=== PATIENT | male | born 1960 | race Caucasian/White ===

== ENCOUNTER 2020-06-08 09:40 | Outpatient (CLI) | payer BC, SELFPAY ==
[2020-06-08 10:39] LABS: Add Urine Microscopic? YES; Appearance Urine Clear (Clear); Bilirubin Urine Negative (Negative); Blood Urine Negative (Negative); Color Urine Amber (Yellow); Glucose Urine UA Negative (Negative); Ketones Urine Negative (Negative); Leukocyte Esterase Ur Negative LEU/UL (NEGATIVE); Mucus Urine Rare /lpf; Nitrate Urine Negative (Negative); Protein Urine 2+ mg/dL (Negative); RBC Urine 0-2 /hpf (0-2); Specific Grav Ur 1.024 (1.001-1.035); Urobilinogen Urine Negative mg/dL (<2.0); WBC Urine 0-3 /hpf (0-3)
[2020-06-08 10:50] LABS: Anion Gap 14.4 mmol/L (7-16); Blood Urea Nitrogen 22 mg/dL (9-20); Calcium 9.8 mg/dL (8.4-10.2); Carbon Dioxide 25 mmol/L (22-30); Chloride 101 mmol/L (98-107); Cholesterol 138 mg/dL (0-200); Estimated Glomerular Filt Rate > 60; Glucose 127 mg/dL (75-110); HDL Direct 24 mg/dL; Potassium 4.4 mmol/L (3.4-5.0); Sodium 136 mmol/L (137-145); Triglycerides 430 mg/dL (<150)
[2020-06-08 10:58] LABS: LDL Cholesterol Direct 56 mg/dL
[2020-06-08 11:32] LABS: Creatinine Urine 149.4 mg/dL
[2020-06-08 11:50] LABS: Hemoglobin A1C 7.3 % (<5.7)
[2020-06-08 12:31] LABS: MALB Creatinine Ratio 453.9 mg/g (0-30); Microalbumin Urine Random 678.2 mg/L (0-16.7)
== END 2020-06-08 09:41 | disposition home or self-care (01) ==
PROVIDERS: PCP Family Medicine Adolescent Medicine; Referring Provider Family Medicine Adolescent Medicine; Visit Provider Internal Medicine Nephrology
DX: E11.8 Type 2 diabetes mellitus with unspecified complications (principal); I10 Essential (primary) hypertension; R80.9 Proteinuria, unspecified
CPT/HCPCS: 36415; 80048; 80061; 81001; 82043; 83036; 87086

== ENCOUNTER 2020-06-17 00:30 | Outpatient (CLI) | payer BC, SELFPAY ==
[2020-06-17 18:53] LABS: SARS-CoV-2 RNA PCR Negative
== END 2020-06-17 00:31 | disposition home or self-care (01) ==
LOC: ANHCOVIDDT 00:30
PROVIDERS: PCP Family Medicine Adolescent Medicine; Visit Provider Internal Medicine Gastroenterology
DX: Z01.812 Encounter for preprocedural laboratory examination (principal); Z11.59 Encounter for screening for other viral diseases
CPT/HCPCS: 87635; C9803; U0003

== ENCOUNTER 2020-06-19 00:13 | Day surgery (SDC) | payer BC, SELFPAY ==
[2020-06-11 15:59] VITALS: BMI 34.7
[2020-06-19 07:18] LABS: Glucose Point of Care 131 (65-105)
[2020-06-19 07:20] VITALS: BP 139/87; PULSE 69; RESP 20; TEMP 36.3; O2SAT 98
[2020-06-19] MEDS: LACTATED RINGERS 1,000 ML 150 ML IV CONT (07:30)
--- NOTE | 2020-06-19 08:03 | WPDGICN ---
Assessment and Plan Assessment and plan (1) History of colon polyps: Code(s): Z86.010 - Personal history of colonic polyps Status: Acute Assessment and Plan: Patient has had recurrent adenomatous colon polyps on at least 2 previous colonoscopy. Plan is for surveillance colonoscopy at least every 3-5 years. Continue to high-fiber diet is advised further recommendations will be given after colonoscopy. (2) Rectal bleeding: Code(s): K62.5 - Hemorrhage of anus and rectum Status: Acute Assessment and Plan: Patient has had rather significant episodes of lower GI bleeding. Plan is to evaluate this at the time of colonoscopy if hemorrhoids are evident than hemorrhoid banding will be arranged in the office. In the interim patient is advised to remain on high-fiber diet and stool softeners as necessary. GI Consult Note Consult date/time: 06/19/20 08:03 HPI: Ronni Moreno is a 59 year old male seen in evaluation at the request of Dr Skinny Adamson. Patient presents for colonoscopy. Patient has had a prior history of adenomatous colon polyps most recent colonoscopy 2017 multiple colon polyps were identified. Patient states since that time he has had intermittent large amount of bright red blood per rectum he denies any pain associated with this. Bleeding is often after a harder bowel movement. Patient's family history is noncontributory patient denies abdominal pain. Denies any weight loss. Review of Systems Review of Systems: All systems reviewed & are unremarkable except as noted in HPI and below PMFSH Social History Social History Alcohol intake: current Meds Home Medications and Allergies Home Medications Medication Instructions Recorded Confirmed Type amlodipine 10 mg PO QAM 06/11/20 06/19/20 History aspirin 325 mg PO DAILY 06/11/20 06/19/20 History atenolol 50 mg PO QAM 06/11/20 06/19/20 History atorvastatin 40 mg PO DAILY 06/11/20 06/19/20 History baclofen 10 mg PO DAILY 06/11/20 06/19/20 History fenofibrate 160 mg PO DAILY 06/11/20 06/19/20 History glimepiride 2 mg PO DAILY 06/11/20 06/19/20 History hydrochlorothiazide 25 mg PO QAM 06/11/20 06/19/20 History icosapent ethyl [Vascepa] 1 g PO QAM 06/11/20 06/19/20 History levothyroxine 50 mcg PO QAM 06/11/20 06/19/20 History lysine [L-Lysine] 500 mg PO DAILY 06/11/20 06/19/20 History metformin 1,000 mg PO BID 06/11/20 06/19/20 History pramipexole 0.25 mg PO HS 06/11/20 06/19/20 History vitamin B complex [Super B-50 1 cap PO DAILY 06/11/20 06/19/20 History Complex] Allergies Allergy/AdvReac Type Severity Reaction Status Date / Time No Known Allergies Allergy Verified 06/19/20 07:19 Vital Signs Vital Signs - 24 hr 06/19/20 07:20 Temperature 97.3 F L Pulse Rate 69 Respiratory Rate 20 Blood Pressure 139/87 Pulse Oximetry 98 Exam Narrative: Exam Narrative: Physical exam reveals patient be alert. Vital signs stable. HEENT exam unremarkable. Lungs are clear to auscultation and percussion. Heart is without murmur or extra sounds. Abdominal exam abdomen is somewhat obese. Bowel sounds are present soft nontender with no organomegaly. Digital external rectal exam reveals no obvious external lesions.
--- NOTE | 2020-06-19 08:14 | P.PNAN_ITS ---
Anes - Initial Pre Proc Eval Procedure: Operation Date: 06/19/20 08:30 Proposed Procedures p Screening Colonoscopy - Tim Cooney MD Date/Time: 06/19/20 08:14 Surgeon: Tim Cooney MD Pre Op Diagnosis: neoplasm screening, hx of colon polyp Patient Data Age: 59 Gender: M Height: 5 ft 11 in Weight: 115.2 kg Last Vital Signs Temp 97.3 F L 06/19/20 07:20 Pulse 69 06/19/20 07:20 Resp 20 06/19/20 07:20 BP 139/87 06/19/20 07:20 Pulse Ox 98 06/19/20 07:20 Allergies Allergy/AdvReac Type Severity Reaction Status Date / Time No Known Allergies Allergy Verified 06/19/20 07:19 Home Medications Medication Instructions Recorded Confirmed Type amlodipine 10 mg PO QAM 06/11/20 06/19/20 History aspirin 325 mg PO DAILY 06/11/20 06/19/20 History atenolol 50 mg PO QAM 06/11/20 06/19/20 History atorvastatin 40 mg PO DAILY 06/11/20 06/19/20 History baclofen 10 mg PO DAILY 06/11/20 06/19/20 History fenofibrate 160 mg PO DAILY 06/11/20 06/19/20 History glimepiride 2 mg PO DAILY 06/11/20 06/19/20 History hydrochlorothiazide 25 mg PO QAM 06/11/20 06/19/20 History icosapent ethyl [Vascepa] 1 g PO QAM 06/11/20 06/19/20 History levothyroxine 50 mcg PO QAM 06/11/20 06/19/20 History lysine [L-Lysine] 500 mg PO DAILY 06/11/20 06/19/20 History metformin 1,000 mg PO BID 06/11/20 06/19/20 History pramipexole 0.25 mg PO HS 06/11/20 06/19/20 History vitamin B complex [Super B-50 1 cap PO DAILY 06/11/20 06/19/20 History Complex] Laboratory Tests 06/19/20 07:16 POC Capillary Glucose 131 mg/dl H mg/dl (65-105) Patient hx anesthesia problems: none Family hx anesthesia problems: none COUNT INCLUDES [facility] Past Medical History Medical History (Updated 06/19/20 @ 08:13 by Reymundo Reyes MD) Diabetes Hyperlipidemia Hypertension ELSA (obstructive sleep apnea) Restless leg syndrome Social History Social History Alcohol intake: current Anes - Eval Final PreProcedure Day of Procedure 06/19/20 08:14 Patient weight: obese Heart: regular rate and rhythm Lungs: clear to auscultation Airway: Mallampati scale class II Neurological: alert and oriented Last oral intake: >/= 8 hours ASA classification: III Emergent: no Anesthetic plan: proceed Anesthesia type and monitoring: general GIVS and standard monitoring Informed Consent: The patient's anesthetic plan and its attendant risks and benefits were discussed with the patient/family/POA. Questions were solicited and answers provided to the satisfaction of the patient/family/POA.
[2020-06-19 08:55] VITALS: BP 126/68; PULSE 69; RESP 20; O2SAT 100
[2020-06-19 09:05] VITALS: BP 123/73; PULSE 66; RESP 22; O2SAT 99
== END 2020-06-19 09:28 | disposition home or self-care (01) ==
PROVIDERS: PCP Family Medicine Adolescent Medicine; Visit Provider Internal Medicine Gastroenterology
PROC: 0DJD8ZZ Inspection of Lower Intestinal Tract, Via Natural or Artificial Opening Endoscopic (ICD-10-PCS; CPT 45378; principal; 2020-06-19 08:30)
DX: K62.5 Hemorrhage of anus and rectum (principal); D12.5 Benign neoplasm of sigmoid colon; K63.5 Polyp of colon; K57.30 Diverticulosis of large intestine without perforation or abscess without bleeding; K64.8 Other hemorrhoids; I10 Essential (primary) hypertension; E78.5 Hyperlipidemia, unspecified; E11.9 Type 2 diabetes mellitus without complications; G47.33 Obstructive sleep apnea (adult) (pediatric); G25.81 Restless legs syndrome; Z79.84 Long term (current) use of oral hypoglycemic drugs; Z79.82 Long term (current) use of aspirin; E66.9 Obesity, unspecified; Z68.35 Body mass index [BMI] 35.0-35.9, adult
CPT/HCPCS: 45385; 88305; J2704; J7120

== ENCOUNTER 2023-04-04 01:12 | Day surgery (SDC) | payer BC, SELFPAY ==
[2023-03-20 14:34] VITALS: BMI 32.3
[2023-04-04 07:29] VITALS: BP 125/74; PULSE 59; RESP 20; TEMP 36.4; O2SAT 99; BMI 30.2
[2023-04-04 07:34] LABS: Glucose Point of Care 155 mg/dl (65-105)
[2023-04-04] MEDS: LACTATED RINGERS 1,000 ML 150 ML IV CONT (07:51)
--- NOTE | 2023-04-04 07:57 | WPDANESEPPF ---
Anes - Initial Pre Proc Eval Procedure: Operation Date: 04/04/23 08:30 Proposed Procedures p Colonoscopy - Tim Cooney MD Date/Time: 04/04/23 07:57 Surgeon: Tim Cooney MD Pre Op Diagnosis: hx colon polyps Patient Data Age: 62 Gender: M Height: 1.8 m Weight: 98.1 kg Last Vital Signs Temp 97.5 F L 04/04/23 07:29 Pulse 59 L 04/04/23 07:29 Resp 20 04/04/23 07:29 BP 125/74 04/04/23 07:29 Pulse Ox 99 04/04/23 07:29 O2 Del Method Room Air 04/04/23 07:29 Allergies Allergy/AdvReac Type Severity Reaction Status Date / Time No Known Allergies Allergy Verified 03/20/23 14:27 Home Medications Medication Instructions Recorded Confirmed Type aspirin 325 mg tablet 325 mg PO DAILY 06/11/20 03/20/23 History hydrochlorothiazide 25 mg tablet 25 mg PO QAM 06/11/20 03/20/23 History lysine 500 mg tablet (L-Lysine) 500 mg PO DAILY 06/11/20 03/20/23 History vitamin B complex (Super B-50 1 cap PO DAILY 06/11/20 03/20/23 History Complex capsule) amlodipine 10 mg tablet 10 mg PO QAM 01/20/22 03/20/23 History baclofen 10 mg tablet 10 mg PO QHS #90 tabs 02/04/22 03/20/23 Rx cholecalciferol (vitamin D3) 25 25 mcg PO DAILY 02/16/22 03/20/23 History mcg (1,000 unit) capsule diphenhydramine HCl 50 mg capsule 50 mg PO QHS 02/16/22 03/20/23 History (NightTime Sleep Aid (diphenhydramine)) docusate sodium 250 mg capsule 250 mg PO QHS 02/16/22 03/20/23 History (Stool Softener) magnesium 250 mg tablet 250 mg PO DAILY 02/16/22 03/20/23 History atenolol 50 mg tablet See Rx Instructions .Route 10/10/22 03/20/23 Rx .COMPLEX #90 tabs icosapent ethyl 1 gram capsule 2 g PO BID #360 caps 12/11/22 03/20/23 Rx (Vascepa) atorvastatin 40 mg tablet See Rx Instructions .Route 02/07/23 03/20/23 Rx .COMPLEX #90 tabs clonazepam 1 mg tablet 1 mg PO QHS #90 tabs 02/13/23 03/20/23 Rx tamsulosin 0.4 mg capsule 0.4 mg PO DAILY #90 caps 02/13/23 03/20/23 Rx dulaglutide 3 mg/0.5 mL 3 mg (0.5 mL) subcut WEEKLY #6 mL 02/14/23 03/20/23 Rx subcutaneous pen injector (Trulicity) levothyroxine 50 mcg tablet 50 mcg PO QAM #90 tabs 03/10/23 03/20/23 Rx metformin 500 mg tablet,extended 1,000 mg PO BID #360 tabs 03/13/23 03/20/23 Rx release 24 hr fenofibrate 160 mg tablet 60 mg PO DAILY 03/20/23 03/20/23 History umeclidinium 62.5 mcg-vilanterol 1 inh inhalation DAILY #60 ea 03/23/23 04/04/23 Rx 25 mcg/actuation powdr for inhalation (Anoro Ellipta) Laboratory Tests 04/04/23 07:31 POC Capillary Glucose 155 H mg/dl (65-105) Patient hx anesthesia problems: none Family hx anesthesia problems: none Results Review: All pre-operative results and documents have been reviewed as part of the pre-operative evaluation. [facility] Past Medical History Medical History Abnormal colonoscopy 07/02 sigmoid polyps Repeat 07/05 Diabetes History of colon polyps Hyperlipidemia Hypertension ELSA (obstructive sleep apnea) Restless leg syndrome Surgical History Surgical History History of shoulder surgery 2002 Right rotator cuff repair Family History Family History Father COPD (chronic obstructive pulmonary disease) Social History Social History (Updated 02/16/22 @ 10:10 by Shakila Shaikh MA) Smoking packs per day: 1 Smoking cigarettes per day: 20.0 Years smoked: 45 Smoking pack-years: 45.00 Smoking status: Current every day smoker Second hand tobacco smoke exposure: Yes Alcohol intake: current Alcohol use details: on occasion Substance use: current Substance use type: marijuana Living arrangements: with family Occupation/Education: retired Gender identity (if verbalized by the patient): Male Sexual Orientation (if Verbalized by the Patient): Straight or Heterosexual Spiritual care
--- NOTE | 2023-04-04 08:18 | PM.HPGS ---
History of Present Illness History of Present Illness Consent: Risks, benefits, and alternatives have been discussed and questions answered. Patient agrees to proceed with procedure. Chief complaint: hx colon polyps Narrative: Ronni Moreno is a 62 year old male Presents for screening colonoscopy. Patient's current weight appetite and bowel movements are normal. Patient denies abdominal pain. He has had no bleeding. Patient has a history of multiple colon polyps in the past. Most recent colonoscopy 3 years ago. Patient's family history noncontributory. Patient reports his current weight appetite bowel movements are normal. Review of Systems Review of Systems: Review of systems noncontributory. [facility] Past Medical History Medical History (Updated 04/04/23 @ 08:22 by Tim Cooney MD) Abnormal colonoscopy 07/02 sigmoid polyps Repeat 07/05 Diabetes History of colon polyps Hyperlipidemia Hypertension ELSA (obstructive sleep apnea) Restless leg syndrome Surgical History Surgical History History of shoulder surgery 2003 Right rotator cuff repair Family History Family History Father COPD (chronic obstructive pulmonary disease) Social History Social History (Updated 02/16/22 @ 10:10 by Shakila Shaikh MA) Smoking packs per day: 1 Smoking cigarettes per day: 20.0 Years smoked: 45 Smoking pack-years: 45.00 Smoking status: Current every day smoker Second hand tobacco smoke exposure: Yes Alcohol intake: current Alcohol use details: on occasion Substance use: current Substance use type: marijuana Living arrangements: with family Occupation/Education: retired Gender identity (if verbalized by the patient): Male Sexual Orientation (if Verbalized by the Patient): Straight or Heterosexual Spiritual care concerns: No Agree to blood products: Yes Meds Home Medications and Allergies Home Medications Medication Instructions Recorded Confirmed Type aspirin 325 mg tablet 325 mg PO DAILY 06/11/20 03/20/23 History hydrochlorothiazide 25 mg tablet 25 mg PO QAM 06/11/20 03/20/23 History lysine 500 mg tablet (L-Lysine) 500 mg PO DAILY 06/11/20 03/20/23 History vitamin B complex (Super B-50 1 cap PO DAILY 06/11/20 03/20/23 History Complex capsule) amlodipine 10 mg tablet 10 mg PO QAM 01/20/22 03/20/23 History baclofen 10 mg tablet 10 mg PO QHS #90 tabs 02/04/22 03/20/23 Rx cholecalciferol (vitamin D3) 25 25 mcg PO DAILY 02/16/22 03/20/23 History mcg (1,000 unit) capsule diphenhydramine HCl 50 mg capsule 50 mg PO QHS 02/16/22 03/20/23 History (NightTime Sleep Aid (diphenhydramine)) docusate sodium 250 mg capsule 250 mg PO QHS 02/16/22 03/20/23 History (Stool Softener) magnesium 250 mg tablet 250 mg PO DAILY 02/16/22 03/20/23 History atenolol 50 mg tablet See Rx Instructions .Route 10/10/22 03/20/23 Rx .COMPLEX #90 tabs icosapent ethyl 1 gram capsule 2 g PO BID #360 caps 12/11/22 03/20/23 Rx (Vascepa) atorvastatin 40 mg tablet See Rx Instructions .Route 02/07/23 03/20/23 Rx .COMPLEX #90 tabs clonazepam 1 mg tablet 1 mg PO QHS #90 tabs 02/13/23 03/20/23 Rx tamsulosin 0.4 mg capsule 0.4 mg PO DAILY #90 caps 02/13/23 03/20/23 Rx dulaglutide 3 mg/0.5 mL 3 mg (0.5 mL) subcut WEEKLY #6 mL 02/14/23 03/20/23 Rx subcutaneous pen injector (Trulicity) levothyroxine 50 mcg tablet 50 mcg PO QAM #90 tabs 03/10/23 03/20/23 Rx metformin 500 mg tablet,extended 1,000 mg PO BID #360 tabs 03/13/23 03/20/23 Rx release 24 hr fenofibrate 160 mg tablet 60 mg PO DAILY 03/20/23 03/20/23 History umeclidinium 62.5 mcg-vilanterol 1 inh inhalation DAILY #60 ea 03/23/23 04/04/23 Rx 25 mcg/actuation powdr for inhalation (Anoro Ellipta) Allergies Allergy/AdvReac Type Severity Reaction Status Date / Time No Known Allergies Allergy Verified
[2023-04-04 08:48] VITALS: BP 97/58; PULSE 80; RESP 20; O2SAT 95
[2023-04-04 08:58] VITALS: BP 114/76; PULSE 76; RESP 20; O2SAT 98
[2023-04-04 09:08] VITALS: BP 117/80; PULSE 77; RESP 22; O2SAT 98
== END 2023-04-04 09:12 | disposition home or self-care (01) ==
PROVIDERS: PCP Family Medicine Adolescent Medicine; Visit Provider Internal Medicine Gastroenterology
PROC: 0DJD8ZZ Inspection of Lower Intestinal Tract, Via Natural or Artificial Opening Endoscopic (ICD-10-PCS; CPT 45378; principal; 2023-04-04 08:30)
DX: Z12.11 Encounter for screening for malignant neoplasm of colon (principal); Z86.010 Personal history of colon polyps; E11.9 Type 2 diabetes mellitus without complications; E78.5 Hyperlipidemia, unspecified; I10 Essential (primary) hypertension; G47.33 Obstructive sleep apnea (adult) (pediatric); G25.81 Restless legs syndrome; F17.210 Nicotine dependence, cigarettes, uncomplicated; Z79.82 Long term (current) use of aspirin; K64.8 Other hemorrhoids
CPT/HCPCS: 45378; 82948; J2704; J7120

== ENCOUNTER → 2023-10-18 11:00 | Outpatient (CLI) | payer OTHER, SELFPAY ==
--- NOTE | ~2023-10-18 | CT_ITS ---
CT Scan of the Chest without Contrast: Clinical Indication: Lung cancer screening, personal history of nicotine dependence Technique: Contiguous sections were acquired throughout the chest without intravenous contrast. Dose reduction technique was used on this scan by utilizing automated exposure control and iterative recon struction technique. The dose-length product (DLP) was 178.09 mGy-cm. Findings: There is no evidence of any significant mediastinal, hilar or axillary lymphadenopathy. There are mil d atherosclerotic calcifications of the aorta and coronary arteries. There is no evidence of pleural or pericardial effusion. The lungs are clear. No pulmonary nodules or infiltrates are noted. There is mild right apical parase ptal emphysema. Images through the upper abdomen reveal no abnormalities. Impression: Lung RADS 1: Negative. 12 month follow-up screening CT advised. Reviewed, dictated and finalized at [facility]. [facility] Impression: Lung RADS 1: Negative. 12 month follow-up screening CT advised.
== END ==
PROVIDERS: PCP Family Medicine Adolescent Medicine; Visit Provider Family Medicine Adolescent Medicine
DX: Z12.2 Encounter for screening for malignant neoplasm of respiratory organs (principal); F17.210 Nicotine dependence, cigarettes, uncomplicated
CPT/HCPCS: 71271